=== PATIENT | female | born 2000 | race Caucasian/White ===

== ENCOUNTER 2021-07-04 06:54 | Emergency (ER) | payer OTHER, SELFPAY ==
[2021-07-04 06:58] VITALS: BP 150/98; PULSE 112; RESP 18; TEMP 36.8; O2SAT 97; BMI 34.0
--- NOTE | 2021-07-04 07:28 | CT_ITS ---
PROCEDURE INFORMATION: Exam: CT Abdomen And Pelvis With Contrast Exam date and time: 07/04/2021 7:28 AM Age: 20 years old Clinical indication: Abdominal pain; Acute; Additional info: Abdominal pain- acute- radiates to the back TECHNIQUE: Imaging protocol: Computed tomography of the abdomen and pelvis with contrast. Radiation optimization: All CT scans at this facility use at least one of these dose optimization techniques: automated exposure control; mA and/or kV adjustment per patient size (includes targeted exams where dose is matched to clinical indication); or iterative reconstruction. Contrast material: ISOVUE; Contrast volume: 75 ml; Contrast route: IV; COMPARISON: No relevant prior studies available. FINDINGS: Liver: Normal. No mass. Gallbladder and bile ducts: Normal. No calcified stones. No ductal dilation. Pancreas: Normal. No ductal dilation. Spleen: Normal. No splenomegaly. Adrenal glands: Normal. No mass. Kidneys and ureters: Normal. No hydronephrosis. Stomach and bowel: Unremarkable. No obstruction. No mucosal thickening. Appendix: Probable normal appendix seen. Intraperitoneal space: Unremarkable. No free air. No significant fluid collection. Vasculature: Unremarkable. No abdominal aortic aneurysm. Lymph nodes: Several subcentimeter mesenteric lymph nodes. Urinary bladder: Unremarkable as visualized. Reproductive: 2.5 cm dominant follicle or small cyst on the left ovary. Bones/joints: Unremarkable. No acute fracture. Soft tissues: Unremarkable. IMPRESSION: No definite evidence of acute abdominal or pelvic pathology. Remainder of findings as described above.
[2021-07-04 07:36] LABS: Microscopic, Urine URINE MICROSCOPIC (MICROSCOPIC)
[2021-07-04 07:37] LABS: Appearance,Urine SL CLOUDY (Clear); Bilirubin,Urine Negative (Negative); Blood, Urine 1+ (Negative); Color,Urine YELLOW (Yellow); Glucose,Urine (UA) Negative (Negative); Ketones,Urine Negative (Negative); Leukocyte Esterase,Urine Negative (Negative); Nitrate,Urine Negative (Negative); Protein,Urine Negative (Negative); Specific Gravity, Urine 1.025 (1.005-1.030); Urobilinogen,Urine 0.2 EU/dl (0.2)
[2021-07-04 07:40] LABS: Basophils # 0.1 K/mm3 (0-0.2); Basophils % 0.7 % (0.1-2.0); Eosinophils # 0.3 K/mm3 (0.0-0.4); Eosinophils % 1.8 % (0.1-12.0); Hemoglobin 14.4 g/dL (12.2-16.2); Lymphocytes # 3.1 K/mm3 (0.7-4.5); Lymphocytes % 19.7 % (10-50); Mean Corpuscular HGB Conc 33.5 g/dL (31.8-35.4); Mean Corpuscular Volume 89.6 fl (81-99); Mean Platelet Volume 7.9 fl (7.4-10.4); Monocytes # 0.8 K/mm3 (0.1-1.0); Monocytes % 4.8 % (1.7-9.3); Neutrophils # 11.6 K/mm3 (1.8-7.8); Platelet Count 411 K/mm3 (142-424); Red Cell Distribution Width 13.5 % (11.5-17.5); White Blood Count 15.9 K/mm3 (4.8-10.8)
[2021-07-04 07:42] LABS: Urine Pregnancy, HCG Qual. Negative (Negative)
[2021-07-04 07:43] LABS: MANUAL DIFFERENTIAL MANUAL DIFFERENTIAL (MANUAL DIFF)
[2021-07-04 07:44] LABS: Chloride 105 mmol/L (98-107); Sodium 139 mmol/L (136-145)
[2021-07-04 07:44] LABS: Amorphous Sediment,Urine 2+ /lpf; Squamous Epithelial Cell,Urine 20-50 #/hpf (0-5)
[2021-07-04 07:45] LABS: Potassium 4.1 mmoL/L (3.5-5.1)
[2021-07-04 07:47] LABS: Alanine Aminotransferase 17 U/L (12-78); Alkaline Phosphatase 88 U/L (38-126); Amylase 62 U/L (30-110); Anion Gap 14.1 mEq/L (5-15); Aspartate Amino Transferase 22 U/L (14-36); Bilirubin,Total 0.2 mg/dl (0.2-1.3); Blood Urea Nitrogen 9 mg/dl (7-17); Calcium 9.4 mg/dl (8.4-10.2); Carbon Dioxide 24 mmol/L (22.0-30.0); Creatinine Clearance Estimated 229 mL/min (50-200); Estimated Glomerular Filt Rate 156 ml/min (>60); GFR (African American) 188 ML/MIN (>60); Glucose 111 mg/dl (74-100); Lipase 91 U/L (23-300)
[2021-07-04 07:48] LABS: Albumin Level 4.7 g/dl (3.5-5.0); Albumin/Globulin Ratio 1.4 (1.1-1.8); Globulin 3.3 g/dL (1.3-3.2); Lymphocytes % 23 % (10-50); Monocytes % 7 % (2-9); Neutrophils % 70 % (42-76); Platelet Estimate Normal; RBC Morphology Normal; Total Cells Counted 100
[2021-07-04 09:00] VITALS: BP 132/76; PULSE 90; O2SAT 98
--- NOTE | 2021-07-04 09:25 | [facility].EDABDPAI ---
ED Disposition Clinical Impression: Abdominal pain Disposition: Home, Self-Care Condition on Discharge: Good Instructions: DI for Acute Abdominal Pain Additional Instructions: Please follow up with your primary care physician in 2-3 days for further management. You have been prescribed Toradol to be taken as prescribed. Please return to ED for any concerning symptoms such as worsening abdominal pain, inability to eat and drink, fevers, or any other concerning symptoms. Prescriptions: Ketorolac Tromethamine [Toradol 10mg tablet] 10 mg PO Q6HP PRN #10 tab MDD 40mg/day PRN Reason: Mild To Moderate Pain Prescription Printed Referrals: Provider,Referral, [Primary Care Provider] - Time of Disposition: 09:28 - Critical Care Critical Care Time: No Attestation: On 07/04/21, the high probability of a clinically significant, sudden or life threatening deterioration of the following system(s) required my full and direct attention, intervention and personal management. The time I documented below is in addition to time spent performing reported procedures but includes the following listed in this critical care notation. Medical Decision Making - Kirt Inquiry Pt receiving controlled substance: No Kirt was queried for this patient: No Vital Signs: 07/04/21 06:58 07/04/21 09:00 07/04/21 09:35 Temperature 98.3 F 98.3 F Temperature Source Oral Oral Pulse Rate 90 81 Pulse Rate [Left Radial] 112 H Respiratory Rate 18 18 Blood Pressure 132/76 126/53 L Blood Pressure [Right Arm] 150/98 H Blood Pressure Mean 91 Blood Pressure Mean [Right Arm] 115 Blood Pressure Source Automatic Cuff Blood Pressure Source [Right Arm] Automatic Cuff Blood Pressure Position Sitting Blood Pressure Position [Right Arm] Sitting 02 Sat by Pulse Oximetry 97 98 Oxygen Delivery Method Room Air Room Air - Lab Data Lab Results 07/04/21 07:10: Urine HCG, Qual Negative 07/04/21 07:28: Urine Color Yellow, Urine Appearance Sl cloudy, Urine pH 6.0, Ur Specific [place] 1.025, Urine Protein Negative, Urine Glucose (UA) Negative, Urine Ketones Negative, Urine Blood 1+, Urine Nitrate Negative, Urine Bilirubin Negative, Urine Urobilinogen 0.2, Ur Leukocyte Esterase Negative, Urine RBC 10-20, Urine WBC None, Ur Squamous Epith Cells 20-50, Amorphous Sediment 2+, Urine Bacteria None 07/04/21 07:31: WBC 15.9 H, RBC 4.80, Hgb 14.4, Hct 43.0, MCV 89.6, MCH 30.0, MCHC 33.5, RDW 13.5, Plt Count 411, MPV 7.9, Neut % (Auto) 73.0, Lymph % (Auto) 19.7, [place] % (Auto) 4.8, Eos % (Auto) 1.8, Baso % (Auto) 0.7, Neut # (Auto) 11.6 H, Lymph # (Auto) 3.1, [place] # (Auto) 0.8, Eos # (Auto) 0.3, Baso # (Auto) 0.1, Total Counted 100, Neutrophils % (Manual) 70, Lymphocytes % (Manual) 23, Monocytes % (Manual) 7, Platelet Estimate Normal, RBC Morphology Normal 07/04/21 07:31: Sodium 139, Potassium 4.1, Chloride 105, Carbon Dioxide 24, Anion Gap 14.1, BUN 9, Creatinine 0.50 L, Estimated Creat Clear 229, Estimated GFR 156, Est GFR ( Amer) 188, Glucose 111 H, Calcium 9.4, Total Bilirubin 0.2, AST 22, ALT 17, Alkaline Phosphatase 88, Total Protein 8.0, Albumin 4.7, Globulin 3.3 H, Albumin/Globulin Ratio 1.4, Amylase 62, Lipase 91 Result diagrams: 07/04/21 07:31 07/04/21 07:31 Orders (Tests/Meds): ED MEDICATIONS Discontinued Medications Generic Name Dose Route Start Last Admin Trade Name Freq PRN Reason Stop Dose Admin Sodium Chloride 1,000 mls @ 999 mls/hr 07/04/21 07:30 07/04/21 07:32 Sod Chlor 0.9% 1000ml Bag IV 07/04/21 08:30 999 mls/hr .Q1H1M TONIA Administration Iopamidol 75 ml 07/04/21 08:12 07/04/21 08:13 Iopamidol-370 (76%);100ml Bottle IV 07/04/21 08:13 75 ml ONCE ONE Administration Ketorolac Tromethamine 30 mg 07/04/21 07:28 07/04/21 07:32 Ketorolac 30mg/Ml Vial IV 07/04/21 07:29 30 mg ONCE ONE Administration Ketorolac Tromethamine 30 mg 07/04/21 09:21 Ketorolac 30mg/Ml Vial IV 07/04/21 09:
[2021-07-04 09:35] VITALS: BP 126/53; PULSE 81; RESP 18; TEMP 36.8; O2SAT 98
== END 2021-07-04 09:37 | disposition home or self-care (01) ==
PROVIDERS: Emergency Provider Emergency Medicine
DX: R10.84 Generalized abdominal pain (principal); M54.50 Low back pain, unspecified
CPT/HCPCS: 74177; 80053; 81001; 81025; 82150; 83690; 85007; 85025; 96365; 96375; 99283; Q9967